=== PATIENT | female | born 1970 | race Hispanic/Latino ===

== ENCOUNTER → 2017-05-30 | Outpatient (CLI) | payer OTHER | END | disposition home or self-care (01) | LOC: SLP 17:37 | PROVIDERS: ATTEND Nurse Practitioner Adult Health | DX: G47.30 Sleep apnea, unspecified (principal); R06.83 Snoring; R40.0 Somnolence | CPT/HCPCS: 95810 ==

== ENCOUNTER → 2017-06-01 | Outpatient (CLI) | payer OTHER ==
[2017-06-01 09:56] LABS: BASOPHILS % (AUTO) 0.8 % (0.0-5.0); EOSINOPHILS % (AUTO) 0.5 % (0.0-8.0); HEMATOCRIT 43.3 % (36-48); LYMPHOCYTES % (AUTO) 14.5 % (21.0-51.0); MEAN CORPUSCULAR HEMOGLOBIN 29.7 pg (27.0-33.0); MEAN CORPUSCULAR HGB CONC 33.5 g/dL (32.0-36.0); MEAN CORPUSCULAR VOLUME 88.7 fL (79-99); NEUTROPHILS % (AUTO) 79.2 % (40.0-77.0); PLATELET COUNT (AUTO) 397 K/uL (130-400); RED BLOOD CELL COUNT(AUTO) 4.88 MIL/uL (4.00-5.50); RED CELL DISTRIBUTION WIDTH 15.3 % (11.0-15.5); WHITE BLOOD COUNT (AUTO) 12.9 K/uL (4.8-10.8)
[2017-06-01 10:20] LABS: ALBUMIN 3.4 g/dL (3.5-5.0); BILIRUBIN,TOTAL 0.5 mg/dL (0.2-1.0); CREATININE 0.8 mg/dL (0.5-1.5); POTASSIUM 3.9 mmol/L (3.5-5.1); THYROID STIMULATING HORMONE 1.78 uIU/mL (0.36-3.74); TOTAL PROTEIN, SERUM 8.5 g/dL (6.0-8.3)
== END | disposition home or self-care (01) ==
LOC: LAB 09:22
PROVIDERS: ATTEND Nurse Practitioner Adult Health
DX: Z00.00 Encounter for general adult medical examination without abnormal findings (principal)
CPT/HCPCS: 36415; 80053; 80061; 82306; 83036; 84443; 85025

== ENCOUNTER → 2017-06-04 | Outpatient (CLI) | payer OTHER | END | disposition home or self-care (01) | LOC: RAH 08:54 | PROVIDERS: ATTEND Orthopaedic Surgery | DX: M23.91 Unspecified internal derangement of right knee (principal); M25.461 Effusion, right knee | CPT/HCPCS: 73721 ==

== ENCOUNTER → 2017-06-19 | Outpatient (CLI) | payer OTHER | END | disposition home or self-care (01) | LOC: SLP 20:00 | PROVIDERS: ATTEND Nurse Practitioner Adult Health | DX: G47.30 Sleep apnea, unspecified (principal); R06.83 Snoring; R40.0 Somnolence | CPT/HCPCS: 95811 ==

== ENCOUNTER → 2017-09-13 | Outpatient (CLI) | payer OTHER | END | disposition home or self-care (01) | LOC: RAH 10:48 | PROVIDERS: ATTEND Nurse Practitioner Adult Health | DX: Z12.31 Encounter for screening mammogram for malignant neoplasm of breast (principal) | CPT/HCPCS: 77067 ==

== ENCOUNTER → 2018-05-30 | Outpatient (CLI) | payer OTHER ==
[2018-05-30 09:14] LABS: BASOPHILS % (AUTO) 0.8 % (0.0-5.0); EOSINOPHILS % (AUTO) 3.4 % (0.0-8.0); HEMATOCRIT 43.3 % (36-48); MEAN CORPUSCULAR HEMOGLOBIN 30.2 pg (27.0-33.0); MEAN CORPUSCULAR HGB CONC 32.8 g/dL (32.0-36.0); MONOCYTES % (AUTO) 4.9 % (3.0-13.0); NEUTROPHILS % (AUTO) 62.9 % (40.0-77.0); PLATELET COUNT (AUTO) 331 K/uL (130-400); RED CELL DISTRIBUTION WIDTH 14.8 % (11.0-15.5); WHITE BLOOD COUNT (AUTO) 7.7 K/uL (4.8-10.8)
[2018-05-30 09:22] LABS: HEMOGLOBIN A1C 6.2 % (4.0-6.0)
[2018-05-30 09:33] LABS: ALBUMIN 3.4 g/dL (3.5-5.0); BILIRUBIN,TOTAL 0.9 mg/dL (0.2-1.0); CREATININE 0.8 mg/dL (0.5-1.5); POTASSIUM 3.9 mmol/L (3.5-5.1); THYROID STIMULATING HORMONE 2.84 uIU/mL (0.36-3.74); TOTAL PROTEIN, SERUM 8.1 g/dL (6.0-8.3)
== END | disposition home or self-care (01) ==
LOC: LAB 08:48
PROVIDERS: ATTEND Nurse Practitioner Adult Health
DX: Z00.00 Encounter for general adult medical examination without abnormal findings (principal)
CPT/HCPCS: 36415; 80053; 80061; 82306; 83036; 84443; 85025

== ENCOUNTER → 2018-08-27 | Outpatient (CLI) | payer OTHER ==
[2018-08-27 14:25] LABS: ALBUMIN 3.2 g/dL (3.5-5.0); BILIRUBIN,TOTAL 0.7 mg/dL (0.2-1.0); CREATININE 0.7 mg/dL (0.5-1.5); THYROID STIMULATING HORMONE 2.1 uIU/mL (0.36-3.74); TOTAL PROTEIN, SERUM 7.7 g/dL (6.0-8.3)
== END | disposition home or self-care (01) ==
LOC: LAB 12:58
PROVIDERS: ATTEND Family Medicine
DX: Z13.220 Encounter for screening for lipoid disorders (principal); E78.1 Pure hyperglyceridemia; E78.5 Hyperlipidemia, unspecified; R53.83 Other fatigue; Z83.3 Family history of diabetes mellitus
CPT/HCPCS: 36415; 80053; 80061; 83036; 84443

== ENCOUNTER 2019-02-04 19:53 | Emergency (ER) | payer OTHER ==
[2019-02-04] MEDS ORDERED: IBUPROFEN 800 MG TAB ONE (20:13)
[2019-02-04] MEDS ORDERED: LIDOCAINE 5% TOPICAL PATCH TP ONE (20:14)
[2019-02-04] MEDS ORDERED: DIAZEPAM 5 MG TABLET ONE (20:14)
== END 2019-02-04 21:06 | disposition home or self-care (01) ==
LOC: EDH 19:53
DX: S39.012A Strain of muscle, fascia and tendon of lower back, initial encounter (principal); S46.811A Strain of other muscles, fascia and tendons at shoulder and upper arm level, right arm, initial encounter; S20.211A Contusion of right front wall of thorax, initial encounter; V59.40XA Driver of pick-up truck or van injured in collision with unspecified motor vehicles in traffic accident, initial encounter; Y93.89 Activity, other specified; Y92.89 Other specified places as the place of occurrence of the external cause; Y99.8 Other external cause status

== ENCOUNTER → 2019-05-08 | Outpatient (CLI) | payer OTHER ==
[2019-05-08 10:58] LABS: ALBUMIN 3.4 g/dL (3.5-5.0); BILIRUBIN,TOTAL 0.7 mg/dL (0.2-1.0); CREATININE 0.8 mg/dL (0.5-1.5); POTASSIUM 4.3 mmol/L (3.5-5.1); TOTAL PROTEIN, SERUM 8.4 g/dL (6.0-8.3)
== END | disposition home or self-care (01) ==
LOC: LAB 10:02
PROVIDERS: ATTEND Family Medicine
DX: E78.1 Pure hyperglyceridemia (principal)
CPT/HCPCS: 36415; 80053; 80061; 83036

== ENCOUNTER → 2020-04-06 | Outpatient (CLI) | payer OTHER ==
[2020-04-06 10:29] LABS: HEMOGLOBIN A1C 6.2 % (4.0-6.0)
[2020-04-06 10:43] LABS: ALBUMIN 3.2 g/dL (3.5-5.0); BILIRUBIN,TOTAL 0.7 mg/dL (0.2-1.0); CREATININE 0.7 mg/dL (0.5-1.5); POTASSIUM 3.8 mmol/L (3.5-5.1); THYROID STIMULATING HORMONE 3.93 uIU/mL (0.36-3.74); TOTAL PROTEIN, SERUM 7.7 g/dL (6.0-8.3)
== END | disposition home or self-care (01) ==
LOC: LAB 09:36
PROVIDERS: ATTEND Family Medicine
DX: R73.03 Prediabetes (principal); E78.5 Hyperlipidemia, unspecified
CPT/HCPCS: 36415; 80053; 82043; 83036; 84439; 84443

== ENCOUNTER 2020-08-02 00:37 | Emergency (ER) | payer OTHER ==
[2020-08-02] MEDS ORDERED: ACETAMINOPHEN EXTRA STRENGTH 500 MG TABLET ONE (01:55)
[2020-08-02 01:57] LABS: BASOPHILS % (AUTO) 0.3 % (0.0-5.0); EOSINOPHILS % (AUTO) 3.7 % (0.0-8.0); HEMATOCRIT 42.6 % (36-48); LYMPHOCYTES % (AUTO) 23.2 % (21.0-51.0); MEAN CORPUSCULAR HEMOGLOBIN 29.3 pg (27.0-33.0); MEAN CORPUSCULAR HGB CONC 31.7 g/dL (32.0-36.0); MEAN CORPUSCULAR VOLUME 92.6 fL (79-99); MONOCYTES % (AUTO) 6.3 % (3.0-13.0); NEUTROPHILS % (AUTO) 66.2 % (40.0-77.0); PLATELET COUNT (AUTO) 277 K/uL (130-400); RED CELL DISTRIBUTION WIDTH 15.2 % (11.0-15.5); WHITE BLOOD COUNT (AUTO) 8.6 K/uL (4.8-10.8)
[2020-08-02 02:08] LABS: CREATININE 0.9 mg/dL (0.5-1.5); POTASSIUM 3.8 mmol/L (3.5-5.1)
[2020-08-02 02:13] LABS: ALBUMIN 3.1 g/dL (3.5-5.0); BILIRUBIN,TOTAL 0.4 mg/dL (0.2-1.0); TOTAL PROTEIN, SERUM 7.8 g/dL (6.0-8.3)
[2020-08-02 02:19] LABS: APPEARANCE,URINE Clear (CLEAR); BILIRUBIN,URINE Negative (NEGATIVE); COLOR,URINE Yellow (YELLOW); GLUCOSE, URINE (UA) Negative (NEGATIVE); KETONES,URINE Negative (NEGATIVE); LEUKOCYTE ESTERASE ,URINE Negative (NEGATIVE); NITRATE,URINE Negative (NEGATIVE); OCCULT BLOOD,URINE Negative (NEGATIVE); PROTEIN,URINE Negative (NEGATIVE)
[2020-08-02 02:36] LABS: B-TYPE NATRIURETIC PEPTIDE 24 pg/mL (0-100)
== END 2020-08-02 04:06 | disposition home or self-care (01) ==
LOC: EDH 00:37
DX: I89.0 Lymphedema, not elsewhere classified (principal); R60.0 Localized edema; Z88.8 Allergy status to other drugs, medicaments and biological substances; Z90.710 Acquired absence of both cervix and uterus; Z98.890 Other specified postprocedural states; Z86.16 Personal history of COVID-19
CPT/HCPCS: 36415; 80053; 81003; 83880; 84484; 85025; 93971

== ENCOUNTER → 2020-10-21 | Outpatient (CLI) | payer OTHER ==
[2020-10-21 11:37] LABS: HEMOGLOBIN A1C 6.2 % (4.0-6.0)
[2020-10-21 11:49] LABS: THYROID STIMULATING HORMONE 1.92 uIU/mL (0.36-3.74)
== END | disposition home or self-care (01) ==
LOC: LAB 10:57
PROVIDERS: ATTEND Family Medicine
DX: Z13.220 Encounter for screening for lipoid disorders (principal); E78.5 Hyperlipidemia, unspecified; R53.83 Other fatigue; R73.03 Prediabetes
CPT/HCPCS: 36415; 80061; 82043; 83036; 84443

== ENCOUNTER 2020-12-20 06:47 | Day surgery (SDC) | payer OTHER ==
[~2020-12-20] VITALS: Ht 165.1 cm; Wt 163.3 kg
[2020-12-20] VITALS (8 sets, daily range): BP systolic 95–122; BP diastolic 36–63
[2020-12-20] MEDS ORDERED: 0.9%NACL 1000ML 1,000 ML IV ONE (07:18)
[2020-12-20] MEDS ORDERED: METF-444 PO ×2 (07:48)
[2020-12-20] MEDS ORDERED: PROPOFOL 10 MG/ML 20ML VIAL IV ONE (07:48)
[2020-12-20] MEDS ORDERED: ACET-2743 PO ×2 (07:48)
[2020-12-21] MEDS ORDERED: DICY20TA2 PO (22:04)
[2020-12-21] MEDS ORDERED: PANT40TA PO (22:04)
[2020-12-21] MEDS ORDERED: METO-296 PO (22:04)
[2020-12-21] MEDS ORDERED: ONDA4TAB10 PO (22:04)
== END 2020-12-20 08:50 | disposition home or self-care (01) ==
LOC: DAH 06:47 → ENDO 06:47
PROVIDERS: ATTEND Surgery
DX: K21.9 Gastro-esophageal reflux disease without esophagitis (principal); E66.01 Morbid (severe) obesity due to excess calories; E11.9 Type 2 diabetes mellitus without complications; G47.30 Sleep apnea, unspecified; M19.90 Unspecified osteoarthritis, unspecified site; Z79.899 Other long term (current) drug therapy; Z98.891 History of uterine scar from previous surgery; Z90.710 Acquired absence of both cervix and uterus; Z90.49 Acquired absence of other specified parts of digestive tract; Z98.890 Other specified postprocedural states; Z82.49 Family history of ischemic heart disease and other diseases of the circulatory system; Z83.3 Family history of diabetes mellitus; Z68.43 Body mass index [BMI] 50.0-59.9, adult
CPT/HCPCS: 43235; 82948; A4215 ×2; A4221; A4222; A4223; A4606; A4620; A4663; J2704; J7030

== ENCOUNTER 2020-12-21 16:30 | Emergency (ER) | payer OTHER ==
[~2020-12-21] VITALS: Ht 165.1 cm; Wt 163.3 kg
[~2020-12-21 16:30] MED LIST: ACET-2743 PO; METF-444 PO
[2020-12-21 16:31] VITALS: BP 160/89
[2020-12-21 17:06] LABS: BASOPHILS % (AUTO) 0.5 % (0.0-5.0); EOSINOPHILS % (AUTO) 2.3 % (0.0-8.0); HEMATOCRIT 45.9 % (36-48); LYMPHOCYTES % (AUTO) 21.2 % (21.0-51.0); MEAN CORPUSCULAR HEMOGLOBIN 29.7 pg (27.0-33.0); MEAN CORPUSCULAR HGB CONC 31.8 g/dL (32.0-36.0); MEAN CORPUSCULAR VOLUME 93.3 fL (79-99); MONOCYTES % (AUTO) 5.4 % (3.0-13.0); NEUTROPHILS % (AUTO) 70.3 % (40.0-77.0); PLATELET COUNT (AUTO) 300 K/uL (130-400); RED BLOOD CELL COUNT(AUTO) 4.92 MIL/uL (4.00-5.50); RED CELL DISTRIBUTION WIDTH 14.9 % (11.0-15.5); WHITE BLOOD COUNT (AUTO) 8.9 K/uL (4.8-10.8)
[2020-12-21 17:19] LABS: CREATININE 0.8 mg/dL (0.5-1.5); POTASSIUM 3.7 mmol/L (3.5-5.1)
[2020-12-21 17:24] LABS: ALBUMIN 3.4 g/dL (3.5-5.0); BILIRUBIN,TOTAL 0.7 mg/dL (0.2-1.0); TOTAL PROTEIN, SERUM 8.1 g/dL (6.0-8.3)
[2020-12-21] MEDS ORDERED: PANTOPRAZOLE 40 MG/VIAL IVP ONE (20:00)
[2020-12-21] MEDS ORDERED: FAMOTIDINE 20MG VIAL IV ONE (20:00)
[2020-12-21] MEDS ORDERED: IOHEXOL-350 75 ML VIAL IV ONE (20:00)
[2020-12-21] MEDS ORDERED: METOCLOPRAMIDE 10 MG/2 ML VIAL IVP ONE (20:00)
[2020-12-21] MEDS ORDERED: MAG/ALUM/SIMETH 30 ML UDCUP PO ONE (22:00)
[2020-12-21] MEDS ORDERED: LIDOCAINE HCL 2% VISCOUS 15 ML UDCUP PO ONE (22:00)
[2020-12-21] MEDS ORDERED: DICY20TA2 PO (22:04)
[2020-12-21] MEDS ORDERED: METO-296 PO (22:04)
[2020-12-21] MEDS ORDERED: PANT40TA PO (22:04)
[2020-12-21] MEDS ORDERED: ONDA4TAB10 PO (22:04)
== END 2020-12-21 22:23 | disposition home or self-care (01) ==
LOC: EDH 16:30
DX: R10.13 Epigastric pain (principal); R07.89 Other chest pain; M79.662 Pain in left lower leg; R06.02 Shortness of breath; E11.9 Type 2 diabetes mellitus without complications; E66.9 Obesity, unspecified; Z79.84 Long term (current) use of oral hypoglycemic drugs; Z79.899 Other long term (current) drug therapy; Z86.718 Personal history of other venous thrombosis and embolism; Z88.5 Allergy status to narcotic agent; Z88.6 Allergy status to analgesic agent; Z68.43 Body mass index [BMI] 50.0-59.9, adult
CPT/HCPCS: 36415; 71045; 71275; 80053; 84484; 85025; 85378; 93005; 93971; 96374; 96375; 99285; C9113; J2765; J3490; Q9967

== ENCOUNTER 2021-01-14 11:00 | Inpatient (IN) | payer OTHER, SELFPAY ==
[~2021-01-14] VITALS: Ht 165.1 cm; Wt 170.2 kg
[~2021-01-14 11:00] MED LIST changes: -ACET-2743 PO
[2021-01-14 13:21] LABS: ALBUMIN 3.1 g/dL (3.5-5.0); BILIRUBIN,DIRECT 0.2 mg/dL (0.0-0.3); BILIRUBIN,TOTAL 0.8 mg/dL (0.2-1.0); CREATININE 0.7 mg/dL (0.5-1.5); POTASSIUM 3.7 mmol/L (3.5-5.1); TOTAL PROTEIN, SERUM 8.5 g/dL (6.0-8.3)
[2021-01-17] VITALS (31 sets, daily range): BP systolic 88–138; BP diastolic 35–91
[2021-01-17] MEDS ORDERED: BUPIVACAINE/PF 0.5% 30ML VIAL ONE (07:33)
[2021-01-17] MEDS ORDERED: SCOPOLAMINE HYDROBROMIDE 1 EACH ADH..PATCH TD ONE (07:48)
[2021-01-17] MEDS ORDERED: PROPOFOL 10 MG/ML 20ML VIAL IV ONE ×2 (07:52→11:18)
[2021-01-17] MEDS ORDERED: ROCURONIUM 10MG/1ML SYR 10 MG/ML ML ONE ×2 (07:53→10:15)
[2021-01-17] MEDS ORDERED: CEFAZOLIN SODIUM 100 GM IV SCH (08:00)
[2021-01-17] MEDS ORDERED: ONDANSETRON 4MG INJ ONE ×2 (08:08→11:06)
[2021-01-17] MEDS ORDERED: MIDAZOLAM HCL 1 MG/ML 2ML VIAL ONE (08:09)
[2021-01-17] MEDS: CEFAZOLIN SODIUM 1 GM VIAL ONE ×2 (08:10→08:46)
[2021-01-17] MEDS: 0.9%NACL 1000ML 1,000 ML IV SCH ×2 (08:11→08:21)
[2021-01-17] MEDS ORDERED: DEXAMETHASONE SOD PHOSPHATE 4 MG/ML 1ML VIAL ONE (08:33)
[2021-01-17] MEDS ORDERED: FENTANYL CITRATE PF 50 MCG/1 ML 5ML AMP IV ONE (09:15)
[2021-01-17] MEDS ORDERED: EPHEDRINE SULFATE 50 MG/ML AMPULE ONE ×2 (09:19→12:34)
[2021-01-17] MEDS ORDERED: ALBUMIN (HUMAN) 5% 250 ML IV ONE ×2 (09:33→11:52)
[2021-01-17 09:55] LABS: ABG BASE EXCESS -4.8 mmol/L (-2.0-3.0); ABG HCO3 21.2 mmol/L (21.0-28.0); ABG OXYGEN SATURATION 97.1 % (95.0-99.0); ABG PCO2 43 mmHg (32-45)
[2021-01-17 10:55] LABS: ABG BASE EXCESS -6.4 mmol/L (-2.0-3.0); ABG HCO3 19.9 mmol/L (21.0-28.0); ABG OXYGEN SATURATION 98.8 % (95.0-99.0); ABG PCO2 43 mmHg (32-45)
[2021-01-17] MEDS ORDERED: SODIUM BICARB 8.4% 50ML SYRINGE ONE (10:57)
[2021-01-17] MEDS ORDERED: SUGAMMADEX SODIUM 200 MG/2 ML VIAL IV ONE (11:04)
[2021-01-17] MEDS ORDERED: MEPERIDINE-PF 25 MG/ML SYG ONE (12:12)
[2021-01-17] MEDS ORDERED: ONDANSETRON 4MG INJ IVP PRN (12:30)
[2021-01-17] MEDS: LACTATED RINGERS 1000ML 1,000 ML IV SCH ×2 (12:30→19:45)
[2021-01-17] MEDS ORDERED: MORPHINE 4 MG SYG IVP PRN (13:00)
[2021-01-17] MEDS: CEFAZOLIN SODIUM 1 GM VIAL IVP SCH ×2 (15:43→20:31)
[2021-01-17] MEDS: INSULIN HUMULIN R 100 UNIT/ML 3ML SQ SCH ×2 (15:54→20:32)
[2021-01-17 17:58] LABS: MEAN CORPUSCULAR HEMOGLOBIN 29.7 pg (27.0-33.0); MEAN CORPUSCULAR HGB CONC 30.9 g/dL (32.0-36.0); MEAN CORPUSCULAR VOLUME 96.3 fL (79-99); PLATELET COUNT (AUTO) 267 K/uL (130-400); RED BLOOD CELL COUNT(AUTO) 3.53 MIL/uL (4.00-5.50); RED CELL DISTRIBUTION WIDTH 15.2 % (11.0-15.5); WHITE BLOOD COUNT (AUTO) 22.9 K/uL (4.8-10.8)
[2021-01-17] MEDS: MORPHINE 2 MG SYG IVP PRN ×2 (18:06→19:52)
[2021-01-17 18:40] LABS: BAND NEUTROPHILS % (MANUAL) 20 % (0-2); LYMPHOCYTES % (MANUAL) 1 % (22-44); MAN.DIFF COMMENT-IMPRESSION MANUAL DIFFERENTIAL; MONOCYTES % (MANUAL) 1 % (2-9); SEGMENTED NEUTROPHILS % 78 % (40-70)
[2021-01-17 18:42] LABS: PLATELET MORPHOLOGY COMMENT LARGE PLTS PRESENT
[2021-01-17] MEDS: FAMOTIDINE 20MG VIAL IV SCH (20:32)
[2021-01-17] MEDS: ENOXAPARIN SODIUM 30 MG/0.3 ML SQ SCH (20:32)
[2021-01-17] MEDS ORDERED: PHARMACY COMMUNICATION MISC SCH (21:00)
[2021-01-17] MEDS ORDERED: HYDROMORPHONE 1 MG INJ ONE (22:18)
[2021-01-18] VITALS (25 sets, daily range): BP systolic 89–134; BP diastolic 53–87
[2021-01-18] MEDS: HYDROMORPHONE 1 MG INJ IVP PRN ×6 (01:58→20:08)
[2021-01-18 04:05] LABS: BASOPHILS % (AUTO) 0.1 % (0.0-5.0); HEMATOCRIT 30.8 % (36-48); LYMPHOCYTES % (AUTO) 5.4 % (21.0-51.0); MEAN CORPUSCULAR HEMOGLOBIN 29.7 pg (27.0-33.0); MEAN CORPUSCULAR HGB CONC 30.8 g/dL (32.0-36.0); MEAN CORPUSCULAR VOLUME 96.3 fL (79-99); MONOCYTES % (AUTO) 9.1 % (3.0-13.0); NEUTROPHILS % (AUTO) 84.9 % (40.0-77.0); PLATELET COUNT (AUTO) 287 K/uL (130-400); RED CELL DISTRIBUTION WIDTH 15.2 % (11.0-15.5); WHITE BLOOD COUNT (AUTO) 20.1 K/uL (4.8-10.8)
[2021-01-18 04:19] LABS: CREATININE 1.4 mg/dL (0.5-1.5); POTASSIUM 4.6 mmol/L (3.5-5.1)
[2021-01-18] MEDS: LACTATED RINGERS 1000ML 1,000 ML IV SCH ×3 (04:26→20:07)
[2021-01-18] MEDS: INSULIN HUMULIN R 100 UNIT/ML 3ML SQ SCH ×4 (05:49→21:00)
[2021-01-18] MEDS: FAMOTIDINE 20MG VIAL IV SCH ×2 (08:07→20:07)
[2021-01-18] MEDS: ENOXAPARIN SODIUM 30 MG/0.3 ML SQ SCH ×2 (08:08→20:08)
[2021-01-18] MEDS ORDERED: PHARMACY COMMUNICATION MISC SCH (12:30)
[2021-01-18] MEDS ORDERED: METHYLENE BLUE 5 MG/ML AMP PO ONE (13:30)
[2021-01-19] VITALS (18 sets, daily range): BP systolic 88–128; BP diastolic 48–68
[2021-01-19] MEDS: HYDROMORPHONE 1 MG INJ IVP PRN ×5 (00:33→23:05)
[2021-01-19 04:23] LABS: BASOPHILS % (AUTO) 0.2 % (0.0-5.0); EOSINOPHILS % (AUTO) 0.6 % (0.0-8.0); HEMATOCRIT 26.8 % (36-48); MEAN CORPUSCULAR HEMOGLOBIN 29.4 pg (27.0-33.0); MEAN CORPUSCULAR HGB CONC 30.6 g/dL (32.0-36.0); MEAN CORPUSCULAR VOLUME 96.1 fL (79-99); MONOCYTES % (AUTO) 6.3 % (3.0-13.0); NEUTROPHILS % (AUTO) 85.8 % (40.0-77.0); NUCLEATED RED BLOOD CELLS 0.2 % (0.0-0.19); PLATELET COUNT (AUTO) 328 K/uL (130-400); RED BLOOD CELL COUNT(AUTO) 2.79 MIL/uL (4.00-5.50); WHITE BLOOD COUNT (AUTO) 22.9 K/uL (4.8-10.8)
[2021-01-19] MEDS: LACTATED RINGERS 1000ML 1,000 ML IV SCH ×3 (04:51→21:14)
[2021-01-19 04:52] LABS: ALBUMIN 2.7 g/dL (3.5-5.0); BILIRUBIN,TOTAL 0.5 mg/dL (0.2-1.0); CREATININE 2.1 mg/dL (0.5-1.5); POTASSIUM 4.5 mmol/L (3.5-5.1); TOTAL PROTEIN, SERUM 6.4 g/dL (6.0-8.3)
[2021-01-19] MEDS: INSULIN HUMULIN R 100 UNIT/ML 3ML SQ SCH ×4 (07:15→21:00)
[2021-01-19] MEDS: FAMOTIDINE 20MG VIAL IV SCH ×2 (07:39→20:57)
[2021-01-19] MEDS: ENOXAPARIN SODIUM 30 MG/0.3 ML SQ SCH ×2 (07:39→21:13)
[2021-01-20] MEDS: HYDROMORPHONE 1 MG INJ IVP PRN ×2 (01:58→09:21)
[2021-01-20 03:54] LABS: BASOPHILS % (AUTO) 0.1 % (0.0-5.0); EOSINOPHILS % (AUTO) 0.1 % (0.0-8.0); HEMATOCRIT 24.5 % (36-48); MEAN CORPUSCULAR HGB CONC 31.4 g/dL (32.0-36.0); MEAN CORPUSCULAR VOLUME 95.3 fL (79-99); MONOCYTES % (AUTO) 5.9 % (3.0-13.0); NEUTROPHILS % (AUTO) 85.6 % (40.0-77.0); NUCLEATED RED BLOOD CELLS 0.5 % (0.0-0.19); PLATELET COUNT (AUTO) 329 K/uL (130-400); RED BLOOD CELL COUNT(AUTO) 2.57 MIL/uL (4.00-5.50); RED CELL DISTRIBUTION WIDTH 15.1 % (11.0-15.5); WHITE BLOOD COUNT (AUTO) 26.8 K/uL (4.8-10.8)
[2021-01-20 04:00] VITALS: BP 108/62
[2021-01-20 04:09] LABS: POTASSIUM 4.9 mmol/L (3.5-5.1)
[2021-01-20] MEDS: LACTATED RINGERS 1000ML 1,000 ML IV SCH ×3 (05:31→20:53)
[2021-01-20] MEDS: INSULIN HUMULIN R 100 UNIT/ML 3ML SQ SCH ×4 (06:58→21:00)
[2021-01-20 07:30] VITALS: BP 107/68
[2021-01-20] MEDS: ENOXAPARIN SODIUM 30 MG/0.3 ML SQ SCH (08:46)
[2021-01-20] MEDS: FAMOTIDINE 20MG VIAL IV SCH ×2 (08:46→20:53)
[2021-01-20 11:42] VITALS: BP 112/61
[2021-01-20] MEDS ORDERED: TRAMADOL HCL 50 MG TABLET PO PRN (14:00)
[2021-01-20 15:47] VITALS: BP 111/69
[2021-01-20] MEDS: TRAMADOL HCL 50 MG TABLET PO PRN (16:21)
[2021-01-20] MEDS: METRONIDAZOLE 500 MG TABLET PO SCH (16:21)
[2021-01-20] MEDS: CEFEPIME HCL 2 GM VIAL IVP SCH (16:21)
[2021-01-20 17:24] LABS: ABG BASE EXCESS 0.3 mmol/L (-2.0-3.0); ABG HCO3 25.1 mmol/L (21.0-28.0); ABG OXYGEN SATURATION 94.9 % (95.0-99.0); ABG PCO2 42 mmHg (32-45)
[2021-01-20 17:53] LABS: MEAN CORPUSCULAR HEMOGLOBIN 30.4 pg (27.0-33.0); MEAN CORPUSCULAR HGB CONC 31.3 g/dL (32.0-36.0); MEAN CORPUSCULAR VOLUME 97.2 fL (79-99); NUCLEATED RED BLOOD CELLS 0.9 % (0.0-0.19); PLATELET COUNT (AUTO) 348 K/uL (130-400); RED BLOOD CELL COUNT(AUTO) 2.47 MIL/uL (4.00-5.50); RED CELL DISTRIBUTION WIDTH 15.3 % (11.0-15.5); WHITE BLOOD COUNT (AUTO) 23.9 K/uL (4.8-10.8)
[2021-01-20 18:38] LABS: BAND NEUTROPHILS % (MANUAL) 6 % (0-2); EOSINOPHILS % (MANUAL) 1 % (1-6); LYMPHOCYTES % (MANUAL) 4 % (22-44); MAN.DIFF COMMENT-IMPRESSION MANUAL DIFFERENTIAL; REACTIVE LYMPHOCYTES 1 % (0-0); SEGMENTED NEUTROPHILS % 88 % (40-70)
[2021-01-20 18:42] LABS: PLATELET MORPHOLOGY COMMENT LARGE PLTS PRESENT
[2021-01-20 19:35] VITALS: BP 114/64
[2021-01-20 23:37] VITALS: BP 105/57
[2021-01-21] VITALS (7 sets, daily range): BP systolic 105–135; BP diastolic 58–70
[2021-01-21] MEDS: METRONIDAZOLE 500 MG TABLET PO SCH ×4 (00:08→23:52)
[2021-01-21] MEDS: TRAMADOL HCL 50 MG TABLET PO PRN ×3 (00:09→23:52)
[2021-01-21 04:15] LABS: BASOPHILS % (AUTO) 0.2 % (0.0-5.0); EOSINOPHILS % (AUTO) 0.8 % (0.0-8.0); HEMATOCRIT 22.9 % (36-48); LYMPHOCYTES % (AUTO) 6.3 % (21.0-51.0); MEAN CORPUSCULAR HEMOGLOBIN 29.2 pg (27.0-33.0); MEAN CORPUSCULAR VOLUME 94.2 fL (79-99); MONOCYTES % (AUTO) 7.7 % (3.0-13.0); NEUTROPHILS % (AUTO) 83.7 % (40.0-77.0); NUCLEATED RED BLOOD CELLS 1.7 % (0.0-0.19); PLATELET COUNT (AUTO) 385 K/uL (130-400); RED BLOOD CELL COUNT(AUTO) 2.43 MIL/uL (4.00-5.50); RED CELL DISTRIBUTION WIDTH 15.3 % (11.0-15.5); WHITE BLOOD COUNT (AUTO) 22.8 K/uL (4.8-10.8)
[2021-01-21 04:30] LABS: POTASSIUM 3.8 mmol/L (3.5-5.1)
[2021-01-21] MEDS: CEFEPIME HCL 2 GM VIAL IVP SCH ×2 (04:33→15:56)
[2021-01-21] MEDS: LACTATED RINGERS 1000ML 1,000 ML IV SCH (04:35)
[2021-01-21] MEDS: INSULIN HUMULIN R 100 UNIT/ML 3ML SQ SCH ×4 (07:30→20:33)
[2021-01-21] MEDS: FLUCONAZOLE 400 MG/NS 200 ML 200 ML IV SCH (09:11)
[2021-01-21] MEDS: FAMOTIDINE 20MG VIAL IV SCH ×2 (09:11→20:33)
[2021-01-21 12:31] LABS: ABG BASE EXCESS 2.5 mmol/L (-2.0-3.0); ABG HCO3 27.7 mmol/L (21.0-28.0); ABG OXYGEN SATURATION 95.3 % (95.0-99.0); ABG PCO2 45 mmHg (32-45)
[2021-01-21] MEDS ORDERED: LACTATED RINGERS 1000ML 1,000 ML IV SCH (16:00)
[2021-01-21] MEDS: FUROSEMIDE 20MG VIAL IV SCH (19:28)
[2021-01-22 03:35] VITALS: BP 144/70
[2021-01-22 03:59] LABS: HEMATOCRIT 30.7 % (36-48); MEAN CORPUSCULAR HEMOGLOBIN 29.6 pg (27.0-33.0); MEAN CORPUSCULAR HGB CONC 31.6 g/dL (32.0-36.0); MEAN CORPUSCULAR VOLUME 93.6 fL (79-99); PLATELET COUNT (AUTO) 482 K/uL (130-400); RED BLOOD CELL COUNT(AUTO) 3.28 MIL/uL (4.00-5.50); RED CELL DISTRIBUTION WIDTH 15.8 % (11.0-15.5); WHITE BLOOD COUNT (AUTO) 21.7 K/uL (4.8-10.8)
[2021-01-22] MEDS: CEFEPIME HCL 2 GM VIAL IVP SCH ×2 (04:05→16:08)
[2021-01-22 04:20] LABS: CREATININE 0.9 mg/dL (0.5-1.5); MAGNESIUM 2.2 mg/dL (1.80-2.40); PHOSPHORUS 2.1 mg/dL (2.5-4.9); POTASSIUM 3.6 mmol/L (3.5-5.1)
[2021-01-22 04:53] LABS: BAND NEUTROPHILS % (MANUAL) 3 % (0-2); EOSINOPHILS % (MANUAL) 4 % (1-6); LYMPHOCYTES % (MANUAL) 9 % (22-44); MAN.DIFF COMMENT-IMPRESSION MANUAL DIFFERENTIAL; MONOCYTES % (MANUAL) 4 % (2-9); PLATELET MORPHOLOGY COMMENT SLIGHT INCREASED; SEGMENTED NEUTROPHILS % 80 % (40-70)
[2021-01-22] MEDS: INSULIN HUMULIN R 100 UNIT/ML 3ML SQ SCH ×4 (05:48→20:40)
[2021-01-22 08:11] VITALS: BP 128/55
[2021-01-22] MEDS: METRONIDAZOLE 500 MG TABLET PO SCH ×3 (08:33→23:28)
[2021-01-22] MEDS ORDERED: POTASSIUM PHOS 15 mMOL+NS250ML 250 ML IV SCH (09:00)
[2021-01-22] MEDS: TRAMADOL HCL 50 MG TABLET PO PRN ×3 (09:00→20:42)
[2021-01-22] MEDS: FLUCONAZOLE 400 MG/NS 200 ML 200 ML IV SCH (09:04)
[2021-01-22] MEDS: FAMOTIDINE 20MG VIAL IV SCH ×2 (09:04→20:42)
[2021-01-22 10:53] VITALS: BP 121/59
[2021-01-22] MEDS: FUROSEMIDE 20MG VIAL IV SCH (11:56)
[2021-01-22] MEDS ORDERED: METHYLENE BLUE 5 MG/ML AMP PO SCH (14:05)
[2021-01-22 16:16] VITALS: BP 130/61
[2021-01-22] MEDS: FUROSEMIDE 40MG VIAL IV SCH (16:48)
[2021-01-22 19:56] VITALS: BP 129/55
[2021-01-22 23:37] VITALS: BP 114/59
[2021-01-23] MEDS: FUROSEMIDE 40MG VIAL IV SCH ×4 (00:47→22:52)
[2021-01-23] MEDS: TRAMADOL HCL 50 MG TABLET PO PRN ×3 (00:48→21:07)
[2021-01-23 03:28] VITALS: BP 116/57
[2021-01-23] MEDS: CEFEPIME HCL 2 GM VIAL IVP SCH ×2 (03:32→17:42)
[2021-01-23 04:13] LABS: BASOPHILS % (AUTO) 0.3 % (0.0-5.0); EOSINOPHILS % (AUTO) 2.7 % (0.0-8.0); HEMATOCRIT 29.8 % (36-48); LYMPHOCYTES % (AUTO) 8.7 % (21.0-51.0); MEAN CORPUSCULAR HEMOGLOBIN 29.4 pg (27.0-33.0); MEAN CORPUSCULAR HGB CONC 30.5 g/dL (32.0-36.0); MEAN CORPUSCULAR VOLUME 96.4 fL (79-99); MONOCYTES % (AUTO) 10.3 % (3.0-13.0); NEUTROPHILS % (AUTO) 76.5 % (40.0-77.0); NUCLEATED RED BLOOD CELLS 4.8 % (0.0-0.19); PLATELET COUNT (AUTO) 525 K/uL (130-400); RED BLOOD CELL COUNT(AUTO) 3.09 MIL/uL (4.00-5.50); RED CELL DISTRIBUTION WIDTH 15.8 % (11.0-15.5); WHITE BLOOD COUNT (AUTO) 18.6 K/uL (4.8-10.8)
[2021-01-23 04:23] LABS: CREATININE 0.8 mg/dL (0.5-1.5); MAGNESIUM 2.2 mg/dL (1.80-2.40); PHOSPHORUS 2.6 mg/dL (2.5-4.9); POTASSIUM 3.6 mmol/L (3.5-5.1)
[2021-01-23] MEDS: INSULIN HUMULIN R 100 UNIT/ML 3ML SQ SCH ×4 (06:26→21:00)
[2021-01-23 07:55] VITALS: BP 121/64
[2021-01-23] MEDS: FAMOTIDINE 20MG VIAL IV SCH ×2 (09:06→21:07)
[2021-01-23] MEDS: FLUCONAZOLE 400 MG/NS 200 ML 200 ML IV SCH (09:07)
[2021-01-23] MEDS: METRONIDAZOLE 500 MG TABLET PO SCH ×3 (09:07→22:52)
[2021-01-23 11:23] VITALS: BP 149/66
[2021-01-23 16:13] VITALS: BP 150/66
[2021-01-23 20:42] VITALS: BP 126/46
[2021-01-23 23:51] VITALS: BP 149/64
[2021-01-24] MEDS: CEFEPIME HCL 2 GM VIAL IVP SCH ×2 (03:33→16:41)
[2021-01-24 04:08] VITALS: BP 124/59
[2021-01-24 04:52] LABS: HEMATOCRIT 29.7 % (36-48); MEAN CORPUSCULAR HEMOGLOBIN 29.5 pg (27.0-33.0); MEAN CORPUSCULAR HGB CONC 31.6 g/dL (32.0-36.0); MEAN CORPUSCULAR VOLUME 93.1 fL (79-99); RED BLOOD CELL COUNT(AUTO) 3.19 MIL/uL (4.00-5.50); RED CELL DISTRIBUTION WIDTH 15.2 % (11.0-15.5); WHITE BLOOD COUNT (AUTO) 16.6 K/uL (4.8-10.8)
[2021-01-24 05:07] LABS: CREATININE 0.8 mg/dL (0.5-1.5); POTASSIUM 3.2 mmol/L (3.5-5.1)
[2021-01-24] MEDS: TRAMADOL HCL 50 MG TABLET PO PRN ×3 (05:16→13:41)
[2021-01-24] MEDS: INSULIN HUMULIN R 100 UNIT/ML 3ML SQ SCH ×4 (07:12→21:00)
[2021-01-24 07:30] VITALS: BP 101/55
[2021-01-24] MEDS: METRONIDAZOLE 500 MG TABLET PO SCH ×2 (09:21→16:40)
[2021-01-24] MEDS: FUROSEMIDE 40MG VIAL IV SCH (09:21)
[2021-01-24] MEDS: KCL 20 MEQ ERTAB PO SCH (09:21)
[2021-01-24] MEDS: FAMOTIDINE 20MG VIAL IV SCH ×2 (09:22→19:47)
[2021-01-24] MEDS: FLUCONAZOLE 400 MG/NS 200 ML 200 ML IV SCH (09:22)
[2021-01-24 11:11] VITALS: BP 132/70
[2021-01-24 15:53] VITALS: BP 137/71
[2021-01-24] MEDS: FUROSEMIDE 40 MG TABLET PO SCH (16:41)
[2021-01-24 20:56] VITALS: BP 131/67
[2021-01-24 23:45] VITALS: BP 109/49
[2021-01-25] MEDS: CEFEPIME HCL 2 GM VIAL IVP SCH ×2 (03:21→17:27)
[2021-01-25] MEDS: METRONIDAZOLE 500 MG TABLET PO SCH ×4 (03:21→23:22)
[2021-01-25 04:51] VITALS: BP 116/49
[2021-01-25 05:28] LABS: HEMATOCRIT 32.8 % (36-48); MEAN CORPUSCULAR HEMOGLOBIN 29.2 pg (27.0-33.0); MEAN CORPUSCULAR HGB CONC 31.7 g/dL (32.0-36.0); MEAN CORPUSCULAR VOLUME 92.1 fL (79-99); NUCLEATED RED BLOOD CELLS 1.5 % (0.0-0.19); RED BLOOD CELL COUNT(AUTO) 3.56 MIL/uL (4.00-5.50); RED CELL DISTRIBUTION WIDTH 15.2 % (11.0-15.5); WHITE BLOOD COUNT (AUTO) 17.1 K/uL (4.8-10.8)
[2021-01-25 05:46] LABS: CREATININE 0.9 mg/dL (0.5-1.5); MAGNESIUM 1.8 mg/dL (1.80-2.40); PHOSPHORUS 2.6 mg/dL (2.5-4.9); POTASSIUM 3.2 mmol/L (3.5-5.1)
[2021-01-25] MEDS: INSULIN HUMULIN R 100 UNIT/ML 3ML SQ SCH ×4 (06:39→21:00)
[2021-01-25] MEDS: KCL 20 MEQ ERTAB PO SCH (06:40)
[2021-01-25 08:00] VITALS: BP 137/67
[2021-01-25] MEDS ORDERED: POTASSIUM CHLORIDE 10% ELIXIR 20 MEQ/15 ML UDCUP PO PRN (09:30)
[2021-01-25] MEDS ORDERED: POTASSIUM CHLORIDE 20MEQ/100ML 100 ML IV PRN (09:30)
[2021-01-25] MEDS ORDERED: MAGNESIUM 2GM PREMIX 50ML 50 ML IV PRN (09:30)
[2021-01-25] MEDS ORDERED: LIDOCAINE HCL-MPF 1% 2ML VIAL IV PRN (09:30)
[2021-01-25] MEDS: FAMOTIDINE 20MG VIAL IV SCH ×2 (09:58→22:00)
[2021-01-25] MEDS: FLUCONAZOLE 400 MG/NS 200 ML 200 ML IV SCH (09:58)
[2021-01-25] MEDS: FUROSEMIDE 40 MG TABLET PO SCH ×2 (09:59→17:28)
[2021-01-25 11:00] VITALS: BP 124/68
[2021-01-25] MEDS: KCL 20 MEQ ERTAB PO PRN ×3 (15:29→20:05)
[2021-01-25 16:00] VITALS: BP 113/52
[2021-01-25] MEDS ORDERED: TRAMADOL HCL 50 MG TABLET ONE (16:09)
[2021-01-25 20:37] VITALS: BP 135/66
[2021-01-25] MEDS: ENOXAPARIN SODIUM 40 MG/0.4 ML SYRINGE SQ SCH (22:01)
[2021-01-25] MEDS: TRAMADOL HCL 50 MG TABLET PO PRN (23:22)
[2021-01-25 23:59] VITALS: BP 124/62
[2021-01-26 04:08] VITALS: BP 127/66
[2021-01-26 04:23] LABS: HEMATOCRIT 31.2 % (36-48); MEAN CORPUSCULAR HEMOGLOBIN 29.8 pg (27.0-33.0); MEAN CORPUSCULAR HGB CONC 31.7 g/dL (32.0-36.0); NUCLEATED RED BLOOD CELLS 0.8 % (0.0-0.19); RED BLOOD CELL COUNT(AUTO) 3.32 MIL/uL (4.00-5.50); RED CELL DISTRIBUTION WIDTH 15.6 % (11.0-15.5); WHITE BLOOD COUNT (AUTO) 15.4 K/uL (4.8-10.8)
[2021-01-26 04:44] LABS: ALBUMIN 2.2 g/dL (3.5-5.0); BILIRUBIN,TOTAL 0.6 mg/dL (0.2-1.0); CREATININE 0.9 mg/dL (0.5-1.5); POTASSIUM 3.4 mmol/L (3.5-5.1); TOTAL PROTEIN, SERUM 6.7 g/dL (6.0-8.3)
[2021-01-26] MEDS: CEFEPIME HCL 2 GM VIAL IVP SCH ×2 (04:58→17:09)
[2021-01-26] MEDS: KCL 20 MEQ ERTAB PO PRN (06:25)
[2021-01-26] MEDS: INSULIN HUMULIN R 100 UNIT/ML 3ML SQ SCH ×4 (06:34→20:55)
[2021-01-26 07:30] VITALS: BP 116/81
[2021-01-26] MEDS: METRONIDAZOLE 500 MG TABLET PO SCH ×3 (10:11→23:25)
[2021-01-26] MEDS: MAGNESIUM OXIDE 400 MG TABLET PO SCH (10:13)
[2021-01-26] MEDS: ASPIRIN 325MG TAB PO SCH (10:13)
[2021-01-26] MEDS: FAMOTIDINE 20MG VIAL IV SCH ×2 (10:13→20:56)
[2021-01-26] MEDS: ENOXAPARIN SODIUM 40 MG/0.4 ML SYRINGE SQ SCH ×2 (10:14→20:56)
[2021-01-26] MEDS: FUROSEMIDE 40 MG TABLET PO SCH ×2 (10:14→17:09)
[2021-01-26] MEDS: FLUCONAZOLE 400 MG/NS 200 ML 200 ML IV SCH (10:15)
[2021-01-26 11:03] VITALS: BP 131/72
[2021-01-26 15:51] VITALS: BP 118/63
[2021-01-26 20:00] VITALS: BP 123/60
[2021-01-27] VITALS: BP 117/60
[2021-01-27] MEDS: CEFEPIME HCL 2 GM VIAL IVP SCH ×2 (03:44→16:55)
[2021-01-27 04:00] VITALS: BP 119/65
[2021-01-27] MEDS: INSULIN HUMULIN R 100 UNIT/ML 3ML SQ SCH ×3 (05:57→16:30)
[2021-01-27 08:00] VITALS: BP 112/53
[2021-01-27] MEDS: FAMOTIDINE 20MG VIAL IV SCH (08:46)
[2021-01-27] MEDS: MAGNESIUM OXIDE 400 MG TABLET PO SCH (08:46)
[2021-01-27] MEDS: FLUCONAZOLE 400 MG/NS 200 ML 200 ML IV SCH (08:46)
[2021-01-27] MEDS: ASPIRIN 325MG TAB PO SCH (08:46)
[2021-01-27] MEDS: FUROSEMIDE 40 MG TABLET PO SCH ×2 (08:47→16:55)
[2021-01-27] MEDS: ENOXAPARIN SODIUM 40 MG/0.4 ML SYRINGE SQ SCH (08:47)
[2021-01-27] MEDS: METRONIDAZOLE 500 MG TABLET PO SCH ×2 (08:47→16:55)
[2021-01-27] MEDS: TRAMADOL HCL 50 MG TABLET PO PRN ×2 (09:55→20:55)
[2021-01-27 12:00] VITALS: BP 126/63
[2021-01-27 16:11] VITALS: BP 138/71
[2021-01-27 20:00] VITALS: BP 132/80
== END 2021-01-28 04:43 | DRG 853 ==
LOC: DAHIP 01-17 07:04 → 4AH 01-17 11:44 → 2CH 01-17 12:36 → 2DH 01-17 12:52 → 4BH 01-21 13:02 → 3BH 01-26 13:04
PROVIDERS: ADMIT Surgery; ATTEND Surgery
PROC: 0DJ08ZZ Inspection of Upper Intestinal Tract, Via Natural or Artificial Opening Endoscopic (ICD-10-PCS; 2021-01-17)
PROC: 5A09357 Assistance with Respiratory Ventilation, Less than 24 Consecutive Hours, Continuous Positive Airway Pressure (ICD-10-PCS; 2021-01-17)
PROC: 0DJ64ZZ Inspection of Stomach, Percutaneous Endoscopic Approach (ICD-10-PCS; principal; 2021-01-17 08:20)
PROC: 0D160ZA Bypass Stomach to Jejunum, Open Approach (ICD-10-PCS; 2021-01-17 08:20)
PROC: 30233N1 Transfusion of Nonautologous Red Blood Cells into Peripheral Vein, Percutaneous Approach (ICD-10-PCS; 2021-01-19)
PROC: 5A09357 Assistance with Respiratory Ventilation, Less than 24 Consecutive Hours, Continuous Positive Airway Pressure (ICD-10-PCS; 2021-01-19)
PROC: 5A09357 Assistance with Respiratory Ventilation, Less than 24 Consecutive Hours, Continuous Positive Airway Pressure (ICD-10-PCS; 2021-01-20)
PROC: 5A09357 Assistance with Respiratory Ventilation, Less than 24 Consecutive Hours, Continuous Positive Airway Pressure (ICD-10-PCS; 2021-01-21)
DX: A41.9 Sepsis, unspecified organism (principal); J96.01 Acute respiratory failure with hypoxia; D62 Acute posthemorrhagic anemia; N17.9 Acute kidney failure, unspecified; Z68.44 Body mass index [BMI] 60.0-69.9, adult; E66.2 Morbid (severe) obesity with alveolar hypoventilation; E78.5 Hyperlipidemia, unspecified; E87.6 Hypokalemia; Z20.822 Contact with and (suspected) exposure to COVID-19; I10 Essential (primary) hypertension; R73.03 Prediabetes; Z90.49 Acquired absence of other specified parts of digestive tract; Z88.6 Allergy status to analgesic agent; Z53.31 Laparoscopic surgical procedure converted to open procedure
CPT/HCPCS: 36415; 36430; 36600; 43235; 71045; 74176; 80048; 80053; 80076; 82435; 82803; 82947; 82948; 83605; 83735; 84100; 84132; 84145; 84295; 84484; 85018; 85025; 85027; 86850; 86900; 86901; 86923; 87635; 93005; 93970; 94660; 97039; G0378; J0690; J0692; J1100; J1170; J1450; J1650; J1940; J2175; J2250; J2270; J2405; J2704; J3010; J3475; J3490; J7030; J7120; P9016; P9045; Q9968

== ENCOUNTER → 2021-06-24 | Outpatient (CLI) | payer OTHER ==
[2021-06-24 10:26] LABS: BASOPHILS % (AUTO) 0.4 % (0.0-5.0); EOSINOPHILS % (AUTO) 1.6 % (0.0-8.0); HEMATOCRIT 39.4 % (36-48); LYMPHOCYTES % (AUTO) 34.9 % (21.0-51.0); MEAN CORPUSCULAR HEMOGLOBIN 29.1 pg (27.0-33.0); MEAN CORPUSCULAR HGB CONC 31.2 g/dL (32.0-36.0); MEAN CORPUSCULAR VOLUME 93.1 fL (79-99); MONOCYTES % (AUTO) 7.4 % (3.0-13.0); NEUTROPHILS % (AUTO) 55.3 % (40.0-77.0); PLATELET COUNT (AUTO) 643 K/uL (130-400); RED BLOOD CELL COUNT(AUTO) 4.23 MIL/uL (4.00-5.50); RED CELL DISTRIBUTION WIDTH 18.8 % (11.0-15.5); WHITE BLOOD COUNT (AUTO) 9.8 K/uL (4.8-10.8)
[2021-06-24 10:38] LABS: HEMOGLOBIN A1C 5.1 % (4.0-6.0)
[2021-06-24 11:01] LABS: ALANINE AMINOTRANSFERASE 19 U/L (12-78); ALBUMIN 2.5 g/dL (3.5-5.0); ASPARTATE AMINOTRANSFERASE 22 U/L (10-37); BILIRUBIN,TOTAL 0.9 mg/dL (0.2-1.0); CHOLESTEROL 172 mg/dL (<200); GLUCOSE,RANDOM 90 mg/dL (70-105); HDL CHOLESTEROL 42 mg/dL (35-85); LDL DIRECT 105 mg/dL (0-99); SODIUM SERUM 141 mmol/L (136-145); THYROID STIMULATING HORMONE 2.85 uIU/mL (0.36-3.74); TOTAL PROTEIN, SERUM 8.6 g/dL (6.0-8.3); TRIGLYCERIDES 124 mg/dL (30-200); UREA NITROGEN, BLOOD 8 mg/dL (7-18)
[2021-06-24 11:06] LABS: CARBON DIOXIDE 31 mmol/L (21-32); CHLORIDE 105 mmol/L (101-111); POTASSIUM 3.1 mmol/L (3.5-5.1)
[2021-06-24 11:46] LABS: CREATININE 0.8 mg/dL (0.5-1.5); GLOMERULAR FILTR. RATE CALC 81 mL/min (>60)
== END | disposition home or self-care (01) ==
LOC: LAB 10:00
PROVIDERS: ATTEND Family Medicine
DX: E78.1 Pure hyperglyceridemia (principal); E88.09 Other disorders of plasma-protein metabolism, not elsewhere classified; R73.03 Prediabetes; E78.5 Hyperlipidemia, unspecified; E78.6 Lipoprotein deficiency; E66.01 Morbid (severe) obesity due to excess calories; Z68.41 Body mass index [BMI] 40.0-44.9, adult; Z98.84 Bariatric surgery status
CPT/HCPCS: 36415; 80053; 80061; 82043; 82306; 82607; 82746; 83036; 83540; 83735; 84443; 84446; 84481; 84590; 84630; 85025

== ENCOUNTER → 2021-12-12 | Outpatient (CLI) | payer OTHER | END | disposition home or self-care (01) | LOC: ICE 11:48 | PROVIDERS: ATTEND Hospitalist | DX: Z20.822 Contact with and (suspected) exposure to COVID-19 (principal) | CPT/HCPCS: 87426 ==

== ENCOUNTER → 2022-05-16 | Outpatient (CLI) | payer OTHER ==
[2022-05-16 11:59] LABS: BASOPHILS % (AUTO) 0.6 % (0.0-5.0); EOSINOPHILS % (AUTO) 2.3 % (0.0-8.0); HEMATOCRIT 43.6 % (36-48); LYMPHOCYTES % (AUTO) 30.6 % (21.0-51.0); MEAN CORPUSCULAR HEMOGLOBIN 28.9 pg (27.0-33.0); MEAN CORPUSCULAR HGB CONC 31.7 g/dL (32.0-36.0); MEAN CORPUSCULAR VOLUME 91.4 fL (79-99); MONOCYTES % (AUTO) 9.7 % (3.0-13.0); NEUTROPHILS % (AUTO) 56.7 % (40.0-77.0); PLATELET COUNT (AUTO) 569 K/uL (130-400); RED BLOOD CELL COUNT(AUTO) 4.77 MIL/uL (4.00-5.50); RED CELL DISTRIBUTION WIDTH 14.8 % (11.0-15.5); WHITE BLOOD COUNT (AUTO) 9.1 K/uL (4.8-10.8)
[2022-05-16 12:03] LABS: APPEARANCE,URINE CLEAR (CLEAR); BILIRUBIN,URINE NEGATIVE (NEGATIVE); COLOR,URINE LIGHT-YELLOW (YELLOW); GLUCOSE, URINE (UA) NEGATIVE (NEGATIVE); KETONES,URINE NEGATIVE (NEGATIVE); LEUKOCYTE ESTERASE ,URINE NEGATIVE Leu/uL (NEGATIVE); NITRATE,URINE NEGATIVE (NEGATIVE); OCCULT BLOOD,URINE NEGATIVE (NEGATIVE); PROTEIN,URINE NEGATIVE (NEGATIVE); UROBILINOGEN,URINE 0.2 mg/dL (0.2-1.0)
[2022-05-16 12:08] LABS: HEMOGLOBIN A1C 5.4 % (4.0-6.0)
[2022-05-16 12:13] LABS: ALBUMIN 3.3 g/dL (3.5-5.0); CREATININE 0.9 mg/dL (0.5-1.5); POTASSIUM 4.1 mmol/L (3.5-5.1); TOTAL PROTEIN, SERUM 8.3 g/dL (6.0-8.3)
== END | disposition home or self-care (01) ==
LOC: LAB 11:12
PROVIDERS: ATTEND Family Medicine
DX: E78.1 Pure hyperglyceridemia (principal); E88.09 Other disorders of plasma-protein metabolism, not elsewhere classified; R73.03 Prediabetes; E78.5 Hyperlipidemia, unspecified; E78.6 Lipoprotein deficiency
CPT/HCPCS: 36415; 80053; 80061; 81003; 82043; 83036; 85025

== ENCOUNTER → 2023-01-19 | Outpatient (CLI) | payer OTHER | END | disposition home or self-care (01) | LOC: RAH 14:12 | PROVIDERS: ATTEND Family Medicine | DX: Z12.31 Encounter for screening mammogram for malignant neoplasm of breast (principal) | CPT/HCPCS: 77067 ==

== ENCOUNTER → 2023-01-26 | Outpatient (CLI) | payer OTHER ==
[2023-01-26 11:05] LABS: BASOPHILS # (AUTO) 0.07 K/uL (0.00-0.20); BASOPHILS % (AUTO) 0.8 % (0.0-5.0); EOSINOPHILS % (AUTO) 2.3 % (0.0-8.0); HEMATOCRIT 43.8 % (36-48); IMMATURE GRANULOCYTE ABSOLUTE 0.02 K/uL (0-1); LYMPHOCYTES # (AUTO) 2.9 K/uL (1.0-4.8); LYMPHOCYTES % (AUTO) 33.8 % (21.0-51.0); MEAN CORPUSCULAR HEMOGLOBIN 30.1 pg (27.0-33.0); MEAN CORPUSCULAR HGB CONC 32.4 g/dL (32.0-36.0); MEAN CORPUSCULAR VOLUME 92.8 fL (79-99); MONOCYTES # (AUTO) 0.8 K/uL (0.1-1.0); MONOCYTES % (AUTO) 8.7 % (3.0-13.0); NEUTROPHILS # (AUTO) 4.7 K/uL (1.8-7.7); NEUTROPHILS % (AUTO) 54.2 % (40.0-77.0); PLATELET COUNT (AUTO) 509 K/uL (130-400); RED BLOOD CELL COUNT(AUTO) 4.72 MIL/uL (4.00-5.50); RED CELL DISTRIBUTION WIDTH 14.6 % (11.0-15.5); WHITE BLOOD COUNT (AUTO) 8.7 K/uL (4.8-10.8)
[2023-01-26 11:57] LABS: ALBUMIN 3.1 g/dL (3.5-5.0); BILIRUBIN,TOTAL 0.7 mg/dL (0.2-1.0); CREATININE 0.8 mg/dL (0.5-1.5); POTASSIUM 3.8 mmol/L (3.5-5.1); THYROID STIMULATING HORMONE 1.51 uIU/mL (0.36-3.74); TOTAL PROTEIN, SERUM 7.5 g/dL (6.0-8.3)
== END | disposition home or self-care (01) ==
LOC: LAB 09:42
PROVIDERS: ATTEND Family Medicine
DX: E78.1 Pure hyperglyceridemia (principal); G47.33 Obstructive sleep apnea (adult) (pediatric); R94.6 Abnormal results of thyroid function studies; Z98.84 Bariatric surgery status
CPT/HCPCS: 36415; 80053; 80061; 82043; 82570; 82607; 82746; 84443; 85025

== ENCOUNTER → 2023-03-14 | Outpatient (CLI) | payer OTHER ==
[2023-03-14 10:25] LABS: HEMATOCRIT 39.1 % (36-48); MEAN CORPUSCULAR HEMOGLOBIN 29.6 pg (27.0-33.0); MEAN CORPUSCULAR HGB CONC 31.5 g/dL (32.0-36.0); MEAN CORPUSCULAR VOLUME 94.2 fL (79-99); RED BLOOD CELL COUNT(AUTO) 4.15 MIL/uL (4.00-5.50); RED CELL DISTRIBUTION WIDTH 13.8 % (11.0-15.5); WHITE BLOOD COUNT (AUTO) 6.8 K/uL (4.8-10.8)
== END | disposition home or self-care (01) ==
LOC: LAB 09:17
PROVIDERS: ATTEND Family Medicine
DX: K92.1 Melena (principal)
CPT/HCPCS: 36415; 85027

== ENCOUNTER 2023-03-22 07:00 | Day surgery (SDC) | payer OTHER ==
[~2023-03-22] VITALS: Ht 165.1 cm; Wt 107.0 kg
[2023-03-22] VITALS (12 sets, daily range): BP systolic 91–121; BP diastolic 58–97; PULSE 63–76; RESP 13–22
[~2023-03-22 07:00] MED LIST changes: +ASCO1TAB43 PO; -METF-444 PO; +PANT40TA54 PO; +SUCR1TAB2 PO; +[UNRECOGNIZED DRUG - OTHER] PO
[2023-03-22] MEDS ORDERED: 0.9%NACL 1000ML 1,000 ML IV ONE ×2 (08:16)
[2023-03-22] MEDS ORDERED: PROPOFOL 10 MG/ML 20ML VIAL IV ONE ×2 (09:50)
== END 2023-03-22 11:37 | disposition home or self-care (01) ==
LOC: DAH 07:00 → ENDO 07:00
PROVIDERS: ATTEND Internal Medicine
DX: Z12.11 Encounter for screening for malignant neoplasm of colon (principal); K92.1 Melena; K57.30 Diverticulosis of large intestine without perforation or abscess without bleeding; R12 Heartburn; K29.50 Unspecified chronic gastritis without bleeding; K21.9 Gastro-esophageal reflux disease without esophagitis; E66.9 Obesity, unspecified; Z79.899 Other long term (current) drug therapy; Z79.01 Long term (current) use of anticoagulants; Z90.49 Acquired absence of other specified parts of digestive tract; Z98.84 Bariatric surgery status; Z98.891 History of uterine scar from previous surgery; Z90.710 Acquired absence of both cervix and uterus; Z72.89 Other problems related to lifestyle; Z68.39 Body mass index [BMI] 39.0-39.9, adult
CPT/HCPCS: 82948; 43239; 45378; J7030 ×3; J2704 ×2; A4620; A4215 ×2; A4223; A7002; A4222; A4221; A4663; A4606; J3490